=== PATIENT | male | born 1985 | race Caucasian/White ===

== ENCOUNTER 2017-03-08 14:03 | Emergency (ER) | payer SELFPAY ==
[~2017-03-08] VITALS: Ht 162.6 cm; Wt 54.0 kg
[~2017-03-08 14:03] MED LIST: NO MEDS
[2017-03-08 14:09] VITALS: BP 116/68
== END 2017-03-08 17:57 | disposition home or self-care (01) ==
LOC: ER 14:42
DX: J30.9 Allergic rhinitis, unspecified (principal)
CPT/HCPCS: 99283